=== PATIENT | male | born 1965 ===

== ENCOUNTER 2021-01-27 09:45 | Outpatient (REF) | payer OTHER, SELFPAY ==
--- NOTE | ~2021-01-27 | MR_ITS ---
EXAMINATION: MR KNEE WITHOUT CONTRAST, RIGHT CLINICAL INFORMATION: Assess Higgins's cyst, internal derangement. Patient reports prior surgery. COMPARISON: None TECHNIQUE: MRI of the knee without contrast was performed using routine sequences on a high-field scanner. FINDINGS: MENISCI: Medial Meniscus: There is attenuation of the body and posterior horn of the medial meniscus. There is some vertical increased signal near the free edge of the posterior horn. These findings likely at least in part reflect postsurgical change. Possible recurrent tear. Lateral Meniscus: Intact LIGAMENTS: Cruciate: Intact Collateral: Intact EXTENSOR MECHANISM: Intact ARTICULAR CARTILAGE/BONE: Patellofemoral Compartment: Normal. Medial Compartment: Subtle surface irregularity of the posterior weightbearing femoral articular cartilage. Tibial cartilage normal. Mild edema within the peripheral medial aspect of the medial femoral condyle having the appearance of bone contusion or reactive edema related to possible meniscal tear. Lateral Compartment: Normal JOINT FLUID AND BURSAE: There is a moderate joint effusion. There is mild synovitis. There is a nodular focus of intermediate signal in the posterior lateral recess of the medial compartment most likely reflecting localized synovitis rather than chondral loose bodies. MR/MR knee RT wo con IMPRESSION: Abnormality of the medial meniscus which appears at least in part related to prior surgery. However, I suspect that there may well be a recurrent tear as detailed above. Marrow edema in the medial femoral condyle may reflect a bone contusion or reactive related to the suspected meniscal tear. Mild arthrosis of the medial compartment. Joint effusion and synovitis. Suspect localized synovitis in the posterior recess of the medial compartment rather than chondral loose bodies.
== END 2021-01-27 09:46 | disposition home or self-care (01) ==
LOC: HO.MRI 09:45
PROVIDERS: Visit Provider Internal Medicine
DX: M25.561 Pain in right knee (principal); Z96.651 Presence of right artificial knee joint
CPT/HCPCS: 73721